=== PATIENT | female | born 1970 | race Caucasian/White ===

== ENCOUNTER 2016-11-09 01:54 | Emergency (ER) | payer OTHER ==
[2016-11-09 02:36] LABS: BASOPHILS # (AUTO) 0.1 10^3/uL (0.0-0.1); EOSINOPHILS # (AUTO) 0.1 10^3/uL (0.0-0.7); EOSINOPHILS % (AUTO) 1.1 %; HGB - HEMOGLOBIN 13.3 g/dL (12.0-16.0); MEAN CORPUSCULAR HEMOGLOBIN 29.4 pg (27.0-31.0); MEAN CORPUSCULAR HGB CONC 34.1 g/dL (32.0-36.0); MEAN CORPUSCULAR VOLUME 86.4 fL (81.0-99.0); MEAN PLATELET VOLUME 7.5 fL (7.9-10.8); MONOCYTES # (AUTO) 0.4 10^3/uL (0.0-1.0); MONOCYTES % (AUTO) 5.5 %; NEUTROPHILS # (AUTO) 5.1 10^3/uL (1.5-6.6); NEUTROPHILS % (AUTO) 66.4 %; RED BLOOD COUNT 4.52 10^6/uL (4.20-5.40); RED CELL DISTRIBUTION WIDTH 13.3 % (12.0-15.0); UNCORRECTED WHITE BLOOD COUNT 7.7 x10^3/uL; WHITE BLOOD COUNT 7.7 x10^3/uL (4.8-10.8)
--- NOTE | 2016-11-09 02:37 | ED Physician Documentation ---
History of Present Illness - Stated complaint Stated Complaint: CHEST FEELS FUNNY - Chief complaint Chief Complaint: Cardiac - History obtained from History obtained from: Patient - History of Present Illness Timing: Prior to arrival, Enter time (01:00) Pain level now: 0 Improved by: nothing Worsened by: exacerbated with movement - Additonal information Additional information: c/o chest pressure, midline and without radiation, onset while working, 1AM, associated with dyspnea. episodic. pain is worse with movement Review of Systems Constitutional: reports: Reviewed and negative Cardiac: reports: Chest pain / pressure. denies: Palpitations, Pedal edema, Calf pain Respiratory: reports: Dyspnea. denies: Cough GI: reports: Reviewed and negative PD PAST MEDICAL HISTORY - Past Medical History Past Medical History: Yes Neuro: Other - Past Surgical History Past Surgical History: Yes - Allergies Allergies/Adverse Reactions: Allergies Allergy/AdvReac Type Severity Reaction Status Date / Time No Known Drug Allergies Allergy Verified 11/09/16 01:59 - Social History Does the pt smoke?: Yes Smoking Status: Former smoker Does the pt drink ETOH?: Yes ETOH Use: Beer Does the pt have substance abuse?: No - Immunizations Immunizations are current?: Yes Immunizations: TDAP >10years/unknown PD ED PE NORMAL - Vitals Vital signs reviewed: Yes - General General: Alert and oriented X 3, No acute distress, Well developed/nourished - HEENT HEENT: Moist mucous membranes - Neck Neck: Supple, no meningeal sign - Cardiac Cardiac: RRR, No murmur, No gallop, No rub - Respiratory Respiratory: No respiratory distress, Clear bilaterally - Abdomen Abdomen: Soft - Derm Derm: Normal color, Warm and dry - Extremities Extremities: No edema Results - Vitals Vitals: Oxygen O2 Source Room air - EKG (time done) No standard instances Rate: Rate (enter#) (84) Rhythm: NSR [place]: Normal Intervals: Normal [place] QRS: Normal Ischemia: Normal ST segments - Labs Labs: Laboratory Tests 11/09/16 11/09/16 11/09/16 02:20 02:20 02:20 WBC 7.7 RBC 4.52 Hgb 13.3 Hct 39.0 MCV 86.4 MCH 29.4 MCHC 34.1 RDW 13.3 Plt Count 272 MPV 7.5 L Neut # 5.1 Lymph # 2.0 [place] # 0.4 Eos # 0.1 Baso # 0.1 Absolute Nucleated RBC 0.00 Nucleated RBCs 0.0 D-Dimer Sodium 136 Potassium 3.1 L Chloride 105 Carbon Dioxide 22 Anion Gap 9.0 BUN 12 Creatinine 0.7 Estimated GFR (MDRD) 90 Glucose 202 H Calcium 9.2 Total Bilirubin 0.5 AST 20 ALT 19 Alkaline Phosphatase 82 Troponin I < 0.04 Total Protein 7.7 Albumin 4.5 Globulin 3.2 Albumin/Globulin Ratio 1.4 Lipase 30 11/09/16 02:20 WBC RBC Hgb Hct MCV MCH MCHC RDW Plt Count MPV Neut # Lymph # [place] # Eos # Baso # Absolute Nucleated RBC Nucleated RBCs D-Dimer 204.9 Sodium Potassium Chloride Carbon Dioxide Anion Gap BUN Creatinine Estimated GFR (MDRD) Glucose Calcium Total Bilirubin AST ALT Alkaline Phosphatase Troponin I Total Protein Albumin Globulin Albumin/Globulin Ratio Lipase - Rads (name of study) chest sondra Radiology: Prelim report reviewed, See rad report PD MEDICAL DECISION MAKING - ED course Complexity details: reviewed results, re-evaluated patient, considered differential, d/w patient Departure - Departure Disposition: 01 Home, Self Care Clinical Impression: Chest pain Condition: Good Instructions: ED Chest Pain Atypical Unkn Cause Follow-Up: IBRAHIMA Whittaker [Provider Group] (Call to arrange for next available appointment) Discharge Date/Time: 11/09/16 04:46
[2016-11-09 02:42] LABS: ALBUMIN/GLOBULIN RATIO 1.4 (1.0-2.2); BILIRUBIN,TOTAL 0.5 mg/dL (0.2-1.0); CALCIUM 9.2 mg/dL (8.5-10.3); CREATININE 0.7 mg/dL (0.4-1.0); POTASSIUM 3.1 mmol/L (3.5-5.0); TOTAL PROTEIN 7.7 g/dL (6.7-8.2)
--- NOTE | 2016-11-09 03:30 | XRAY Preliminary Report ---
Exam: XR Chest 2 View PA/LAT IMPRESSION: 1. No acute abnormality seen in the chest. [facility] SITE ID: [id number]
--- NOTE | 2016-11-09 03:32 | XRAY Report ---
EXAM: CHEST RADIOGRAPHY EXAM DATE: 11/09/2016 03:18 AM. CLINICAL HISTORY: Chest pain, dyspnea. COMPARISON: None. TECHNIQUE: 2 views. FINDINGS: Lungs/Pleura: No alveolar consolidation or pleural effusion. No pneumothorax. Mediastinum: Heart and mediastinal contours are unremarkable. Other: None. IMPRESSION: 1. No acute abnormality seen in the chest. [facility] Referring Provider Line: [phone] SITE ID: [id number]
[2016-11-09 04:35] VITALS: BP 121/75
== END 2016-11-09 04:46 | disposition home or self-care (01) ==
LOC: ED 01:54
DX: R07.9 Chest pain, unspecified (principal); Z87.891 Personal history of nicotine dependence
CPT/HCPCS: 36415; 71020; 80053; 83690; 84484; 85025; 85379; 93005; 99283; 99284

== ENCOUNTER 2019-07-30 07:08 | Emergency (ER) | payer OTHER ==
--- NOTE | 2019-07-30 07:33 | ED Physician Documentation ---
PD HPI ABD PAIN - Stated complaint Stated Complaint: ABD PX - Chief complaint Chief Complaint: Abd Pain - History obtained from History obtained from: Patient - History of Present Illness Timing - onset: Last night (about 3 am, onset of upper abd pain, worsening and with nausea/vomiting. Has had similar symptoms several times the past month, associated after eating meat/beef with cheese mainly. Not hurting other foods. The episodes had lasted just 1-2 hours and improved. The current episode is more severe and has lasted longer.) Timing - duration: Hours Timing - details: Gradual onset, Still present Quality: Cramping, Aching, Stabbing, Pain Location: RUQ, Epigastric Radiation: No: Chest, Lower back, Upper back Improved by: No: Vomiting Worsened by: Eating, Breathing, Palpation. No: Moving, Position Associated symptoms: Nausea, Vomiting. No: Fever, Diarrhea, Constipation, Dysuria Similar symptoms before: Has not had sx before Review of Systems Constitutional: denies: Fever, Chills, Myalgias Nose: denies: Rhinorrhea / runny nose, Congestion Throat: denies: Sore throat Cardiac: denies: Chest pain / pressure Respiratory: denies: Cough GI: reports: Abdominal Pain, Nausea, Vomiting. denies: Constipation, Diarrhea, Bloody / black stool : denies: Dysuria, Frequency Skin: denies: Rash, Lesions Neurologic: denies: Generalized weakness, Focal weakness, Near syncope PD PAST MEDICAL HISTORY - Past Medical History Past Medical History: No Endocrine/Autoimmune: Type 2 diabetes - Past Surgical History Past Surgical History: Yes - Present Medications Home Medications: Ambulatory Orders Medication Instructions Recorded Confirmed Ondansetron Odt [Zofran] 4 mg TL Q6H PRN #10 tablet 07/30/19 Oxycodone HCl/Acetaminophen 1 each PO Q6H PRN #14 tablet 07/30/19 [Percocet 5-325 mg Tablet] metFORMIN [Glucophage] 0 mg PO BIDWM 07/30/19 07/30/19 - Allergies Allergies/Adverse Reactions: Allergies Allergy/AdvReac Type Severity Reaction Status Date / Time levofloxacin [From Levaquin] Allergy Hives Verified 07/30/19 07:13 - Social History Does the pt smoke?: Yes Smoking Status: Former smoker Does the pt drink ETOH?: Yes Does the pt have substance abuse?: No - Immunizations Immunizations are current?: Yes Immunizations: TDAP >10years/unknown PD ED PE NORMAL - Vitals Vital signs reviewed: Yes - General General: Alert and oriented X 3, Well developed/nourished, Other (appears in pain) - HEENT HEENT: Pharynx benign. No: Moist mucous membranes - Neck Neck: Supple, no meningeal sign, No adenopathy - Cardiac Cardiac: RRR, No murmur - Respiratory Respiratory: Clear bilaterally - Abdomen Abdomen: Normal bowel sounds, Soft, Non distended, No organomegaly, Other (She is tender in the right upper quadrant to epigastric area with localized guarding. It does hurt more with deep breathing. There is no percussion tenderness. The lower abdomen is nontender. There is no flank tenderness.) - Female Female : Deferred - Rectal Rectal: Deferred - Back Back: No CVA TTP - Derm Derm: Normal color, Warm and dry - Extremities Extremities: Normal ROM s pain, No edema, No calf tenderness / cord - Neuro Neuro: Alert and oriented X 3, No motor deficit, Normal speech Results - Vitals Vitals: Vital Signs - 24 hr 07/30/19 07/30/19 07/30/19 07:14 10:08 11:20 Temperature 36.4 C L 36.4 C L Heart Rate 79 72 68 Respiratory 18 16 12 Rate Blood Pressure 180/96 H 139/76 H 125/70 O2 Saturation 99 97 98 Oxygen O2 Source Room air - Labs Labs: Laboratory Tests 07/30/19 07/30/19 07/30/19 07:35 07:35 09:52 WBC 6.3 RBC 4.87 Hgb 13.8 Hct 41.5 MCV 85.2 MCH 28.3 MCHC 33.3 RDW 12.7 Plt Count 251 MPV 9.7 Neut # (Auto) 4.4 Lymph # (Auto) 1.4 L [place] # (Auto) 0.4 Eos # (Auto) 0.1 Baso # (Auto) 0.1 Absolute Nucleated RBC 0.00 Nucleated RBC % 0.0 Sodium 134 L Potassium 3.6 Chloride 100 L Carbon Dioxide 23 Anion Gap 11.0 BUN 12 Creatinine 0.6 Estimated GFR (MDRD) 107 Glucose 233 H Calcium 9.4 Total Bilirubin 0.4 AST 22 ALT 27 Alkaline Phosphatase 106 Total Protein 7.9 Albumin 3.9 Globulin 4.0 Albumin/Globulin Ratio 1.0 Lipase 37 Urine Color YELLOW Urine Clarity CLEAR Urine pH 6.0 Ur Specific [place] 1.025 Urine Protein NEGATIVE Urine Glucose (UA) >=1000 H Urine Ketones NEGATIVE Urine Occult Blood SMALL H Urine Nitrite NEGATIVE Urine Bilirubin NEGATIVE Urine Urobilinogen 0.2 (NORMAL) Ur Leukocyte Esterase NEGATIVE Urine RBC 0-5 Urine WBC 0-3 Ur Squamous Epith Cells MOD Squamous H Urine Bacteria None Seen Ur Microscopic Review INDICATED Urine Culture Comments NOT INDICATED Urine HCG, Qual NEGATIVE - Rads (name of study) RUQ abd U/S Radiology: Prelim report reviewed, EMP read contemporaneously (2 cm stone nonmobile lodged in the gallbladder neck. The common bile duct is normal. There is no pericholecystic fluid nor wall thickening but the gallbladder is enlarged.), See rad report PD MEDICAL DECISION MAKING - ED course Complexity details: reviewed results, considered differential, d/w patient Departure - Departure Disposition: 01 Home, Self Care Clinical Impression: Upper abdominal pain, Gallstone (impacted), Biliary colic Condition: Stable Record reviewed to determine appropriate education?: Yes Instructions: ED Gallstone W Biliary Colic Follow-Up: Liu Nina MD [Provider Admit Priv/Credential] - Prescriptions: Ondansetron Odt [Zofran] 4 mg TL Q6H PRN #10 tablet PRN Reason: Nausea / Vomiting Oxycodone HCl/Acetaminophen [Percocet 5-325 mg Tablet] 1 each PO Q6H PRN #14 tablet PRN Reason: pain Comments: You have a single gallstone about the size of a marble blocking partly the outlet of the gallbladder. This is causing it to spasm when your gallbladder contracts. The main answer to this will be gallbladder removal. Check with [facility] to ensure appropriate referral to the surgeon Dr. Nina. Follow-up with Dr. Nina tomorrow in the office, call today for an appointment time. Low-fat diet to reduce stimulation of the gallbladder. Use some anti-inflamm atory such as ibuprofen or naproxen for mild pains and consider it twice daily for the next few days anyway. To that add ondansetron if needed for nausea and Tylenol or Percocet if needed for pains. Return to the ER if severe pains again, otherwise follow-up with surgery to discuss gallbladder removal. They can likely do this next week assuming the insurance approval comes through. Discharge Date/Time: 07/30/19 11:10
[2019-07-30 07:39] LABS: BASOPHILS # (AUTO) 0.1 10^3/uL (0.0-0.1); BASOPHILS % (AUTO) 0.8 %; EOSINOPHILS # (AUTO) 0.1 10^3/uL (0.0-0.7); EOSINOPHILS % (AUTO) 1.9 %; HGB - HEMOGLOBIN 13.8 g/dL (12.0-16.0); LYMPHOCYTES # (AUTO) 1.4 10^3/uL (1.5-3.5); LYMPHOCYTES % (AUTO) 21.7 %; MEAN CORPUSCULAR HEMOGLOBIN 28.3 pg (27.0-31.0); MEAN CORPUSCULAR HGB CONC 33.3 g/dL (32.0-36.0); MEAN CORPUSCULAR VOLUME 85.2 fL (81.0-99.0); MEAN PLATELET VOLUME 9.7 fL (7.9-10.8); MONOCYTES # (AUTO) 0.4 10^3/uL (0.0-1.0); MONOCYTES % (AUTO) 5.7 %; NEUTROPHILS # (AUTO) 4.4 10^3/uL (1.5-6.6); NEUTROPHILS % (AUTO) 69.4 %; PLT - PLATELET COUNT 251 10^3/uL (130-450); RED BLOOD COUNT 4.87 10^6/uL (4.20-5.40); RED CELL DISTRIBUTION WIDTH 12.7 % (12.0-15.0); WHITE BLOOD COUNT 6.3 x10^3/uL (4.8-10.8)
[2019-07-30 07:53] LABS: ALBUMIN 3.9 g/dL (3.2-5.5); BILIRUBIN,TOTAL 0.4 mg/dL (0.2-1.0); CALCIUM 9.4 mg/dL (8.5-10.3); CREATININE 0.6 mg/dL (0.4-1.0); TOTAL PROTEIN 7.9 g/dL (6.7-8.2)
[2019-07-30] MEDS ORDERED: SODIUM CHLORIDE 0.9% 1,000 ML IV STA (08:07)
[2019-07-30] MEDS ORDERED: ONDANSETRON 4 MG/2 ML VIAL IVP STA (08:07)
[2019-07-30] MEDS ORDERED: FAMOTIDINE 20 MG/2 ML SYRINGE IVP STA (08:07)
[2019-07-30] MEDS ORDERED: HYDROmorphone 1 MG/ML CARPUJECT IVP STA (08:07)
--- NOTE | 2019-07-30 09:33 | Ultrasound Report ---
Reason: upper abd episodic pain for 1 month, worse today Procedure Date: 07/30/2019 Accession Number: [id number] / [id number] Procedure: US - Abdomen Limited CPT Code: Final Report FULL RESULT: PROCEDURE: Abdomen Limited INDICATIONS: upper abd episodic pain for 1 month, worse today TECHNIQUE: Real-time scanning was performed of the abdominal and retroperitoneal organs, with image documentation. COMPARISON: None. FINDINGS: Liver: Liver is enlarged measuring 18.1 cm with steatosis.. Gallbladder: Gallbladder wall thickness is within normal limits measuring 1.2 mm. There is a nonmobile focus of echogenicity within the gallbladder neck measuring 21 x 14 x 18 mm. No pericholecystic fluid. Biliary ducts: Intrahepatic bile ducts are non-dilated. Extrahepatic bile duct caliber measures 4.4 mm. Normal is 6-7 mm or less in diameter, or 10 mm or less post-cholecystectomy. Pancreas: Visualized portions of the pancreas are sonographically normal. Spleen: Spleen is normal in size and homogeneous in echotexture. Kidneys: Kidneys are normal in size and echotexture. Right kidney measures 12.1 cm long. No hydronephrosis or nephrolithiasis. No solid masses. Aorta: Visualized aorta is normal in caliber at less than 3 cm. IVC: Intrahepatic inferior vena cava is patent. Miscellaneous: No free abdominal fluid. IMPRESSION: Cholelithiasis without imaging evidence of cholecystitis. Reviewed by: Anne Moore MD on 07/30/2019 9:31 AM PDT Approved by: Anne Moore MD on 07/30/2019 9:31 AM PDT Station ID: [id number]
[2019-07-30 10:04] LABS: BILIRUBIN,URINE NEGATIVE (NEGATIVE); GLUCOSE, URINE (UA) >=1000 mg/dL (NEGATIVE); KETONES,URINE (UA) NEGATIVE (NEGATIVE); LEUKOCYTE ESTERASE, URINE NEGATIVE (NEGATIVE); NITRITE,URINE NEGATIVE (NEGATIVE); OCCULT BLOOD,URINE SMALL (NEGATIVE); PROTEIN,URINE NEGATIVE (NEGATIVE); UROBILINOGEN,URINE 0.2 (NORMAL) E.U./dL (NORMAL)
[2019-07-30 10:05] LABS: CLARITY,URINE CLEAR (CLEAR); HCG UR QUAL NEGATIVE
[2019-07-30 10:08] LABS: BACTERIA,URINE None Seen /HPF (None Seen); RBC,URINE 0-5 /HPF (0-5); SQUAMOUS EPITHELIAL CELL,UR MOD Squamous (<= Few)
[2019-07-30 11:22] VITALS: BP 125/70
== END 2019-07-30 11:10 | disposition home or self-care (01) ==
LOC: ED 07:08
DX: K80.70 Calculus of gallbladder and bile duct without cholecystitis without obstruction (principal); E11.9 Type 2 diabetes mellitus without complications; Z79.84 Long term (current) use of oral hypoglycemic drugs; Z87.891 Personal history of nicotine dependence
CPT/HCPCS: 36415; 76705; 80053; 81001; 81025; 83690; 85025; 96374; 99284; J1170; 81003; 87086

== ENCOUNTER 2019-10-08 07:05 | Day surgery (SDC) | payer OTHER ==
[~2019-10-08 07:05] MED LIST: BUPIVACAINE 0.25% PF 30 ML VIAL ONE
[2019-10-08] MEDS ORDERED: NEOSTIGMINE 1 MG/1 ML 10 ML MDV IVP ONE (07:06)
[2019-10-08] MEDS ORDERED: ONDANSETRON 4 MG/2 ML VIAL IVP ONE (07:06)
[2019-10-08] MEDS ORDERED: LIDOCAINE-MPF 2% 5 ML VIAL IM ONE (07:06)
[2019-10-08] MEDS ORDERED: ROCURONIUM 50 MG/5 ML VIAL IVP ONE (07:06)
[2019-10-08] MEDS ORDERED: KETOROLAC 30 MG/ML VIAL IVP ONE (07:06)
[2019-10-08] MEDS ORDERED: MIDAZOLAM 2 MG/2 ML VIAL IVP ONE (07:06)
[2019-10-08] MEDS ORDERED: PROPOFOL 200 MG/20 ML VIAL IVP ONE (07:06)
[2019-10-08] MEDS ORDERED: GLYCOPYRROLATE 1 MG/5 ML VIAL IVP ONE (07:06)
[2019-10-08] MEDS ORDERED: fentaNYL 100 MCG/2 ML VIAL IVP ONE (07:06)
[2019-10-08] MEDS ORDERED: METOCLOPRAMIDE 10 MG/2 ML VIAL IVP ONE (07:06)
--- NOTE | 2019-10-08 07:27 | ANESTHESIA ---
Pre-Anesthesia VS, & Labs - Diagnosis chronic cholecystitis - Procedure laparoscopic cholecystectomy Height 5 ft 2 in Body Mass Index 37.5 - NPO >8 hours - Is Patient ?: No - Lab Results Lab results reviewed: Yes Home Medications and Allergies Home Medications: Ambulatory Orders Atorvastatin Calcium 10/08/19 Lisinopril [Zestril] 20 mg PO 10/08/19 metFORMIN [Glucophage] 0 mg PO BIDWM 07/30/19 Allergies/Adverse Reactions: Allergies Allergy/AdvReac Type Severity Reaction Status Date / Time levofloxacin [From Levaquin] Allergy Hives Verified 07/30/19 07:13 Anes History & Medical History - Anesthetic History Anesthesia Complications: reports: No previous complications Family history of Anesthesia Complications: Denies Family history of Malignant Hyperthermia: Denies - Medical History Cardiovascular: reports: Hypertension, High cholesterol Endocrine/Autoimmune: reports: Type 2 diabetes Smoking Status: Former smoker Exam General: Alert, Oriented x3, Cooperative, No acute distress Dental: WNL Mouth Openin Fingerbreadth Neck Mobility: Normal Mallampati classification: II Respiratory: Lungs clear, Normal breath sounds, No respiratory distress, No accessory muscle use Cardiovascular: Regular rate, Normal S1, Normal S2, No murmurs Plan Anesthesia Type: General Consent for Procedure(s) Verified and Reviewed: Yes Code Status: Attempt Resuscitation ASA classification: 2-Mild systemic disease Is this case an emergency?: No
[2019-10-08 07:31] LABS: HCG UR QUAL NEGATIVE
[2019-10-08] MEDS ORDERED: CEFAZOLIN SODIUM IN 0.9 % NACL 2 GM/100 ML BAG IV ONE (07:57)
[2019-10-08] MEDS ORDERED: MORPHINE 2 MG/ML CARPUJECT IVP PRN (08:27)
[2019-10-08] MEDS ORDERED: METOCLOPRAMIDE 10 MG/2 ML VIAL IVP PRN (08:27)
[2019-10-08] MEDS ORDERED: ATROPINE ABBOJECT 1 MG/10 ML SYRINGE IVP PRN (08:27)
[2019-10-08] MEDS ORDERED: HYDROmorphone 0.5 MG/0.5 ML SYRINGE IVP PRN (08:27)
[2019-10-08] MEDS ORDERED: ONDANSETRON 4 MG/2 ML VIAL IVP PRN (08:27)
[2019-10-08] MEDS ORDERED: NALOXONE 0.4 MG/ML VIAL IVP PRN (08:27)
[2019-10-08] MEDS ORDERED: ePHEDrine 50 MG/ML VIAL IVP PRN (08:27)
[2019-10-08] MEDS ORDERED: fentaNYL 100 MCG/2 ML VIAL IVP PRN (08:27)
[2019-10-08] MEDS ORDERED: LACTATED RINGERS 1,000 ML IV SCH (09:00)
[2019-10-08] MEDS ORDERED: BUPIVACAINE 0.25% PF 30 ML VIAL SUBQ ONE ×2 (09:02)
[2019-10-08] MEDS ORDERED: LACTATED RINGERS 1,000 ML IV ONE ×2 (10:17→10:49)
[2019-10-08] MEDS ORDERED: oxyCODONE 5 MG TABLET PO PRN (10:26)
[2019-10-08] MEDS ORDERED: ONDANSETRON 4 MG/2 ML VIAL ONE (10:31)
--- NOTE | 2019-10-08 10:33 | ANESTHESIA POST OP EVALUATION ---
Anesthesia Post Eval - Post Anesthesia Eval Vitals: Last Vital Signs Temp 37 C 10/08/19 10:25 Pulse 62 10/08/19 10:25 Resp 14 10/08/19 10:25 BP 121/69 10/08/19 10:25 Pulse Ox 95 10/08/19 10:25 CV Function Including HR & BP: positive: Stable Pain Control: positive: Satisfactory Nausea & Vomiting: positive: Negative Mental Status: positive: Baseline Respiratory Status: Airway Patent Hydration Status: Satisfactory Anesthesia Complications: positive: None
[2019-10-08] MEDS ORDERED: ENOXAPARIN 30 MG/0.3 ML SYRINGE SUBQ ONE (10:59)
--- NOTE | 2019-10-08 11:18 | OPERATIVE REPORT ---
DATE OF SERVICE: 10/08/2019 Physician: Liu Nina MD PREOPERATIVE DIAGNOSIS: Chronic cholecystitis. POSTOPERATIVE DIAGNOSIS: Chronic cholecystitis. PROCEDURE PERFORMED: Laparoscopic cholecystectomy. SURGEON: Liu Nina MD PATIENT SAFETY SITTER: None. ANESTHESIA 1. General endotracheal anesthesia. 2. Local anesthesia with Marcaine. COMPLICATIONS: None. SPECIMEN: Gallbladder. ESTIMATED BLOOD LOSS: None. DRAINS: None. FINDINGS 1. 2.5 cm gallstone wedged in the neck of the gallbladder. 2. narrow, small cystic duct. 3. healthy-appearing liver. 4. 5 mm umbilical hernia. INDICATIONS FOR PROCEDURE: Patient is a 49-year-old with mild hypertension and diabetes. She has developed chronic cholecystitis symptoms. Ultrasound reveals a single 2 cm gallstone. She has had severe attacks at times. She presents for laparoscopic cholecystectomy. Risks discussed, alternatives discussed. All questions answered and consent obtained. DESCRIPTION OF PROCEDURE: Patient was properly identified, brought to the operating room and placed in supine position. She voided prior to surgery. Sequential compression devices were placed. General endotracheal anesthesia was induced. She was prepped and draped in a sterile fashion and given preoperative antibiotics. Under general anesthesia, a palpable umbilical hernia was appreciated. An infraumbilical incision was made. Incarcerated adipose tissue was sharply excised. The umbilical skin was excised away from the fascial edge. She had a 5 mm hernia. Fascia was lifted upwards and abdomen entered with the Veress needle. CO2 was insufflated to a pressure of 15. An 11 mm trocar was then placed, followed by a 30-degree scope. There was no evidence of injury from Veress needle or trocar placement. Under direct vision, two 5 mm trocars were placed in the right upper quadrant and a 10 mm trocar was placed in the epigastrium. She had a large floppy gallbladder. It was retracted anterior. Lateral attachments were partially taken down further mobilizing the gallbladder more anterior. Loose omental adhesions were carefully taken down. She had a large fixed stone in the neck of her gallbladder. The infundibulum was retracted right lateral and caudad. With careful dissection and minimal use of cautery a large bare cystic plate area or window was created. The cystic duct and cystic artery were both clipped at the gallbladder and x2 to 3 slightly proximal, and sharply divided. The gallbladder was removed from the bed of the liver using hook cautery. Two very tiny vessels along the fundus of the gallbladder at the liver bed area were clipped and divided with cautery. The gallbladder was removed without spillage of bile or stone material. The gallbladder was placed in the EndoCatch bag and brought out through the epigastrium. The fascia and epigastrium was closed with a [id number] 0 Vicryl. Clips were secure. There were no apparent complications. Trocars were removed under direct vision and CO2 evacuated. Fascia at the umbilical hernia site was closed with a running 0 Vicryl suture. The umbilical skin was tacked back down with interrupted 3-0 Vicryl suture. Skin was closed with buried interrupted 4-0 Monocryl. Dressings were applied. She tolerated the procedure very well. TD: 10/08/2019 10:52 LUIS ARMANDO
[2019-10-08 12:30] VITALS: BP 121/81
[2019-10-09] MEDS ORDERED: ENOXAPARIN 30 MG/0.3 ML SYRINGE SUBQ SCH (09:00)
[2019-10-09] MEDS ORDERED: ENOXAPARIN 40 MG/0.4 ML SYRINGE SUBQ SCH (09:00)
== END 2019-10-08 07:06 | disposition home or self-care (01) ==
LOC: SDS 07:05
PROVIDERS: ATTEND Surgery
PROC: 0FT44ZZ Resection of Gallbladder, Percutaneous Endoscopic Approach (ICD-10-PCS; principal; 2019-10-08 08:30)
DX: K80.12 Calculus of gallbladder with acute and chronic cholecystitis without obstruction (principal); K42.0 Umbilical hernia with obstruction, without gangrene; I10 Essential (primary) hypertension; E11.9 Type 2 diabetes mellitus without complications; Z79.84 Long term (current) use of oral hypoglycemic drugs; Z87.891 Personal history of nicotine dependence
CPT/HCPCS: 47562; 81025; A9270; J0690; J1650; J2765; J7120

== ENCOUNTER 2019-11-06 09:19 | Emergency (ER) | payer OTHER ==
--- NOTE | 2019-11-06 09:40 | ED Physician Documentation ---
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 2 months ago she was on an elevator that suddenly dropped to floors and she had her knee locks. Since then she has had increasing pain inside of the right knee that hurts worse with walking. It is slowly getting worse. No evaluation before today. No other injuries. 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 - Present Medications Home Medications: Ambulatory Orders Medication Instructions Recorded Confirmed metFORMIN [Glucophage] 0 mg PO BIDWM 07/30/19 07/30/19 Atorvastatin Calcium 10/08/19 Lisinopril [Zestril] 20 mg PO 10/08/19 Ondansetron Odt [Zofran Odt] 4 mg PO Q6H PRN #10 tablet 10/08/19 oxyCODONE/ACET 5/325 [Percocet 5 1 each PO Q4-6H PRN #30 tablet 10/08/19 mg/325 mg] Hydrocodone/Acetaminophen 1 - 2 tab PO Q6H PRN #15 tablet 11/06/19 [Hydrocodone-Acetamin 5-325 mg] Ibuprofen [Motrin] 800 mg PO Q8H PRN #20 tablet 11/06/19 - Allergies Allergies/Adverse Reactions: Allergies Allergy/AdvReac Type Severity Reaction Status Date / Time levofloxacin [From Levaquin] Allergy Hives Verified 11/06/19 09:30 - Social History Does the pt smoke?: Yes Smoking Status: Current every day smoker Does the pt drink ETOH?: Yes Does the pt have substance abuse?: No - Immunizations Immunizations are current?: Yes Immunizations: TDAP >10years/unknown PD ED PE NORMAL - Vitals Vital signs reviewed: Yes - General General: Alert and oriented X 3, No acute distress - Extremities Extremities: Other (Small effusion of the right knee, minimally tender anteriorly over the joint lines as well. Some pain with PCL testing but no obvious laxity. Also positive grind testing. Negative ACL MCL and LCL testing.) - Neuro Neuro: Alert and oriented X 3, Normal speech Results - Vitals Vitals: Vital Signs - 24 hr 11/06/19 11/06/19 09:25 10:20 Temperature 37.1 C Heart Rate 81 73 Respiratory 18 18 Rate Blood Pressure 137/91 H O2 Saturation 97 100 Oxygen O2 Source Room air - Rads (name of study) R knee XR Radiology: EMP read contemporaneously (Small effusion and some medial osteoarth ritis.) PD MEDICAL DECISION MAKING - ED course ED course: 49-year-old woman presents with a knee injury, worsening over the course of 2 months. Examination concerning for something like a meniscal injury. X-ray shows a small effusion and some osteoarthritis. She was placed in a knee immobilizer for comfort and given a work note and some pain medications pending follow-up. Departure - Departure Disposition: 01 Home, Self Care Clinical Impression: Internal derangement of right knee Condition: Good Record reviewed to determine appropriate education?: Yes Instructions: ED Meniscal Injury Knee Poss Prescriptions: Hydrocodone/Acetaminophen [Hydrocodone-Acetamin 5-325 mg] 1 - 2 tab PO Q6H PRN #15 tablet PRN Reason: Pain Ibuprofen [Motrin] 800 mg PO Q8H PRN #20 tablet PRN Reason: PAIN &/OR FEVER Comments: [place] given the time course and potential for something like a meniscus injury. Return for new or worsening symptoms. Forms: Activity restrictions
--- NOTE | 2019-11-06 10:12 | XRAY Report ---
PROCEDURE: Knee 4 View RT INDICATIONS: knee pain TECHNIQUE: 3 views of the right knee were acquired. COMPARISON: None. FINDINGS: Bones: No fractures or dislocations. Mild joint space narrowing is demonstrated in the medial tremayne rtment. Mild osteophytosis is noted in the medial and patellofemoral compartments. No suspicious bony lesions. Soft tissues: There is a small joint effusion. No suspicious soft tissue calcifications. IMPRESSION: 1. No fracture or dislocation. 2. Small joint effusion. 3. Mild osteoarthritic changes including mild joint space narrowing in the medial compartment. Reviewed by: Walt Melara MD on 11/06/2019 10:11 AM PDT Approved by: Walt Melara MD on 11/06/2019 10:11 AM PDT Station ID: [id number]
[2019-11-06 10:30] VITALS: BP 140/100
== END 2019-11-06 10:36 | disposition home or self-care (01) ==
LOC: ED 09:19
DX: M23.91 Unspecified internal derangement of right knee (principal); I10 Essential (primary) hypertension; E11.9 Type 2 diabetes mellitus without complications; F17.200 Nicotine dependence, unspecified, uncomplicated; Z79.84 Long term (current) use of oral hypoglycemic drugs; W18.30XA Fall on same level, unspecified, initial encounter; Y99.0 Civilian activity done for income or pay
CPT/HCPCS: 99283

== ENCOUNTER 2022-07-02 13:33 | Emergency (ER) | payer OTHER ==
--- NOTE | 2022-07-02 13:45 | ED Physician Documentation ---
PD HPI ABD PAIN - Stated complaint Stated Complaint: FEMALE - Chief complaint Chief Complaint: Abd Pain - History obtained from History obtained from: Patient - Additional information Additional information: 52-year-old woman presents requesting her IUD be removed. Its been in for about 4 months and she is having a lot of cramps. She has not yet started the process of menopause. PD PAST MEDICAL HISTORY - Past Medical History Cardiovascular: Hypertension, High cholesterol Respiratory: None Endocrine/Autoimmune: Type 2 diabetes GI: None : None HEENT: None Psych: None Musculoskeletal: None Derm: None - Past Surgical History Past Surgical History: Yes /IN [employer]: section - Present Medications Home Medications: Ambulatory Orders Medication Instructions Recorded Confirmed metFORMIN [Glucophage] 0 mg PO BIDWM 07/30/19 07/30/19 Atorvastatin Calcium 10/08/19 Lisinopril [Zestril] 20 mg PO 10/08/19 Ondansetron Odt [Zofran Odt] 4 mg PO Q6H PRN #10 tablet 10/08/19 oxyCODONE/ACET 5/325 [Percocet 5 1 each PO Q4-6H PRN #30 tablet 10/08/19 mg/325 mg] Hydrocodone/Acetaminophen 1 - 2 tab PO Q6H PRN #15 tablet 11/06/19 [Hydrocodone-Acetamin 5-325 mg] Ibuprofen [Motrin] 800 mg PO Q8H PRN #20 tablet 11/06/19 - Allergies Allergies/Adverse Reactions: Allergies Allergy/AdvReac Type Severity Reaction Status Date / Time levofloxacin [From Levaquin] Allergy Hives Verified 07/02/22 13:39 - Social History Does the pt smoke?: Yes Smoking Status: Current every day smoker Does the pt drink ETOH?: Yes Does the pt have substance abuse?: No - Immunizations Immunizations are current?: Yes Immunizations: TDAP >10years/unknown PD ED PE NORMAL - Vitals Vital signs reviewed: Yes - General General: Alert and oriented X 3, No acute distress - Female Female : Other (Exam done with Cathy BLOOM present and chaperoning. She had a very anterior cervix which was nontender. IUD strings are visible and removed with ring forceps.) - Neuro Neuro: Alert and oriented X 3, Normal speech - Psych Psych: Normal mood, Normal affect Results - Vitals Vitals: Vital Signs - 24 hr 05/06/23 05/06/23 13:36 13:38 Temperature 36.0 C L 36.5 C Heart Rate 88 88 Respiratory 16 16 Rate Blood Pressure 172/82 H 172/82 H O2 Saturation 97 97 Oxygen O2 Source Room air PD Medical Decision Making - ED course ED course: 52-year-old woman with ongoing cramps related to an IUD and she requested being out. It was removed with instant relief of her cramps. Given close return precautions. Departure - Departure Disposition: 01 Home, Self Care Clinical Impression: Encounter for IUD removal Condition: Good Record reviewed to determine appropriate education?: Yes Instructions: ED Pelvic Pain [facility] Comments: You will need to use an alternative form of control. Follow-up with your primary care physician, next available appointment. Return if worse. Your blood pressure was elevated today on check into the emergency department. This does not mean that you have hypertension, it is a common phenomenon to come to the emergency department and have elevated blood pressure. I recommend that you see your primary care physician within the week to have it rechecked when you are feeling better.
[2022-07-02 14:08] VITALS: BP 140/80
== END 2022-07-02 14:07 | disposition home or self-care (01) ==
LOC: ED 13:33
DX: Z30.432 Encounter for removal of intrauterine contraceptive device (principal); F17.200 Nicotine dependence, unspecified, uncomplicated
CPT/HCPCS: 99282; 99283